=== PATIENT | male | born 1960 | race Caucasian/White ===

== ENCOUNTER 2016-08-27 09:45 | Day surgery (SDC) | payer OTHER ==
[2016-08-27] MEDS ORDERED: diphenhydrAMINE 25 MG CAP PO ONE ×2 (09:47→10:18)
[2016-08-27] MEDS ORDERED: FAMOTIDINE 20 MG TAB PO ONE (09:47)
[2016-08-27] MEDS ORDERED: NS 1,000 ML IV ONE (09:47)
[2016-08-27] MEDS ORDERED: DIAZEPAM 5 MG TAB PO ONE (09:47)
[2016-08-27] MEDS ORDERED: ASPIRIN EC 325 MG TAB PO ONE ×2 (09:47→10:18)
[2016-08-27] MEDS ORDERED: MIDAZOLAM 2 MG/2 ML VIAL ONE (09:53)
[2016-08-27] MEDS ORDERED: LIDOCAINE 1% 300 MG/30 ML SDV ONE (09:53)
[2016-08-27] MEDS ORDERED: fentaNYL 100 MCG/2 ML INJ ONE (09:53)
[2016-08-27] MEDS ORDERED: IOPAMIDOL (ISOVUE-370) 150 ML BTL IV ONE (09:53)
--- NOTE | 2016-08-27 10:07 | CPEKG ---
Heart Rate: 51 RR Interval: 1176 P-R Interval: 172 QRSD Interval: 130 QT Interval: 452 QTC Interval: 417 P [place]: 64 QRS [place]: 71 T Wave [place]: -19 EKG Severity - ABNORMAL ECG - EKG Impression: SINUS ARRHYTHMIA, RATE 42-60 EKG Impression: RIGHT BUNDLE BRANCH BLOCK Electronically Signed By: Ck Cleveland 27-Aug-2016 23:18:18
[2016-08-27] MEDS ORDERED: FAMOTIDINE 20 MG TAB ONE (10:18)
[2016-08-27] MEDS ORDERED: DIAZEPAM 5 MG TAB ONE (10:19)
[2016-08-27 10:23] LABS: % IMMATURE GRANULYOCYTES 0.3 % (0.0-1.1); ABSOLUTE IMMATURE GRANULOCYTES 0.01 10^3/uL (0.00-0.10); ADD DIFF? NO; ADD MORPH? NO; ADD SCAN? NO; ATYPICAL LYMPHOCYTE FLAG 0 (0-99); FRAGMENT RBC FLAG 0 (0-99); HEMOGLOBIN 13.7 g/dL (13.7-17.5); LEFT SHIFT FLG 0 (0-99); LIPEMIA HEMOLYSIS FLAG 90 (0-99); MEAN CELL HEMOGLOBIN 35.4 pg (27.9-34.1); MEAN CELL HEMOGLOBIN CONCENTR. 36.1 g/dL (32.4-36.7); MEAN CELL VOLUME 98.2 fL (81.5-99.8); MEAN PLATELET VOLUME 10.3 fL (8.7-11.7); PLATELET CLUMPS FLAG 0 (0-99); PLATELET COUNT 173 10^3/uL (150-400); RED BLOOD CELL COUNT 3.87 10^6/uL (4.40-6.38); RED CELL DISTRIBUTION WIDTH 12.3 % (11.5-15.2)
[2016-08-27 10:38] LABS: ANION GAP 11 mEq/L (8-16); CALCIUM 9.1 mg/dL (8.5-10.4); CARBON DIOXIDE 22 mEq/l (22-31); CHLORIDE 112 mEq/L (97-110); CHOLESTEROL 124 mg/dL (140-220); CHOLESTEROL/HDL RATIO 2.58 RATIO (1.00-4.97); CREATININE 1.1 mg/dL (0.7-1.3); GLOMERULAR FILTRATION RATE > 60; GLUCOSE 78 mg/dL (70-100); HIGH DENSITY LIPOPROTEIN 48 mg/dL (40-65); LOW DENSITY LIPOPROTEIN 67 mg/dL (80-100); MAGNESIUM 2.2 mg/dL (1.6-2.3); NON-HIGH DENSITY LIPOPROTEIN 76 mg/dL (90-129); POTASSIUM 4.2 mEq/L (3.5-5.2); SODIUM 145 mEq/L (134-144); TRIGLYCERIDE 46 mg/dL (40-150); VERY LOW DENSITY LIPOPROTEINS 9 mg/dL (8-25)
[2016-08-27 10:48] LABS: INR 1.14 (0.83-1.16)
[2016-08-27 10:49] LABS: PROTIME(PATIENT) 14.5 SEC (12.0-15.0)
[2016-08-27] MEDS ORDERED: ATROPINE SULFATE 1 MG/10 ML SYR ONE (11:06)
[2016-08-27] MEDS ORDERED: OXYCODONE/APAP 5/325 TAB PO PRN (12:04)
[2016-08-27] MEDS ORDERED: ATROPINE SULFATE 1 MG/10 ML SYR IVP PRN (12:04)
[2016-08-27] MEDS ORDERED: ONDANSETRON 4 MG/2 ML VIAL IVP PRN (12:04)
[2016-08-27] MEDS ORDERED: HYDROCODONE/APAP 5/325 TAB PO PRN (12:04)
[2016-08-27] MEDS ORDERED: NITROGLYCERIN 0.4 MG BTL SL PRN (12:04)
--- NOTE | 2016-08-27 12:10 | CPIP ---
[f rep st] INVASIVE CARDIAC PROCEDURE DATE OF PROCEDURE: 08/27/2016 INDICATION FOR PROCEDURE: Patient is a pleasant 55-year-old gentleman with complaints of chest pain with abnormal EKG changes on exercise treadmill stress test with 2.[address]-segment depression that persisted at 4 minutes into the recovery phase coupled with onset of paroxysmal atrial fibrillation with exercise. Holter monitor demonstrated runs of nonsustained ventricular tachycardia, longest run of 13 beats. Patient had an episode of non prodromal syncope while exercising. PROCEDURES PERFORMED: 1. Left heart catheterization. 2. Left and right coronary angiography. 3. Left ventriculogram. 4. Right common femoral artery angiography. 5. Angio-Seal closure device. PROCEDURE: After informed consent was obtained, the patient was brought to the cardiac catheterizat ion lab where he was prepped and draped in sterile fashion. Using 1% lidocaine, the right groin was anesthetized. Using the modified Seldinger technique, a 6-Pakistani catheter was placed into the right common femoral artery without complications. A JL4 catheter was used to take images of the left marjorie nary anatomy in multiple projections. JL4 catheter was exchanged over a guidewire for a JR4 catheter . JR4 catheter was used to take images of the right coronary anatomy in multiple projections. JR4 ca theter was exchanged over a guidewire for angled pigtail catheter. Angled pigtail catheter was used to cross the aortic valve. Left ventriculogram was performed. LVEDP was assessed and aortic valve gr adient was assessed. Angled pigtail catheter was removed over a guidewire without complication. Righ t common femoral angiography was obtained demonstrating appropriate placement of the 6-Pakistani femora l sheath above the bifurcation. FINDINGS: 1. Left main is normal size and caliber and trifurcates into a left anterior descending, ramus bran ch, and circumflex vessel. Left main is free of coronary artery disease, normal caliber and normal s ize. 2. Left anterior descending has a moderate-sized first diagonal branch. Multiple septal perforators . The LAD wraps around the LV apex. There is no evidence of coronary disease within the LAD or diago nal branch. 3. Ramus branch. Ramus branch is free of coronary artery disease throughout its entire length. 4. Circumflex vessel is a nondominant vessel. There is no evidence of coronary disease within the c ircumflex. 5. Right coronary artery is a large vessel that bifurcates into PDA and PLV branch. There is no gemma dence of coronary disease within the right coronary artery. HEMODYNAMICS: LVEDP 12 mmHg. LVEF 55-60 mmHg. Aortic valve gradient none. Right common femoral artery angiography demonstrates appropriate placement of 6-Pakistani sheath above the bifurcation. No evidence of trauma to the vessel. CONCLUSIONS: 1. Normal coronary arteries. 2. Normal left ventricular function. 3. Left ventricular end-diastolic pressure 12 mmHg. PLAN: 1. Patient will be brought back to the [facility] for postoperative monitoring. 2. Patient be discharged home. 3. Patient will follow up in our office for consideration of further evaluation of syncope coupled with nonsustained ventricular tachycardia noted on Holter monitor. /[id number]/MODL
== END 2016-08-27 16:12 | disposition home or self-care (01) ==
LOC: FCATH 09:45
PROVIDERS: ATTEND Internal Medicine Cardiovascular Disease
PROC: B2151ZZ Fluoroscopy of Left Heart using Low Osmolar Contrast (ICD-10-PCS; principal; 2016-08-27)
PROC: 4A023N7 Measurement of Cardiac Sampling and Pressure, Left Heart, Percutaneous Approach (ICD-10-PCS; principal; 2016-08-27)
PROC: B2111ZZ Fluoroscopy of Multiple Coronary Arteries using Low Osmolar Contrast (ICD-10-PCS; principal; 2016-08-27)
DX: R94.39 Abnormal result of other cardiovascular function study (principal); R07.9 Chest pain, unspecified; R55 Syncope and collapse; I47.2 Ventricular tachycardia; R68.89 Other general symptoms and signs; I48.0 Paroxysmal atrial fibrillation; I45.10 Unspecified right bundle-branch block; E83.110 Hereditary hemochromatosis
CPT/HCPCS: C1760; J0461; J1644; J2250; J3010; Q9967

== ENCOUNTER 2017-03-01 12:07 | Emergency (ER) | payer OTHER ==
[2017-03-01 12:20] VITALS: TEMP 98.4
--- NOTE | 2017-03-01 12:40 | EDPHY ---
H & P Stated Complaint: L flank pain Time Seen by Provider: 03/01/17 12:40 - Personal History Current Tetanus/Diphtheria Vaccine: Unsure Current Tetanus Diphtheria and Acellular Pertussis (TDAP): Unsure - Medical/Surgical History Hx Asthma: No Hx Chronic Respiratory Disease: No Hx Diabetes: No Hx Cardiac Disease: No Hx Renal Disease: No Hx Cirrhosis: No Hx Alcoholism: No Hx HIV/AIDS: No Hx Splenectomy or Spleen Trauma: No Other PMH: kidney stone, R inguinal hernia repair, arrhythmia - Social History Smoking Status: Never smoked Constitutional: Initial Vital Signs Temperature (C) 36.9 C 03/01/17 12:16 Heart Rate 60 03/01/17 12:16 Respiratory Rate 16 03/01/17 12:16 Blood Pressure 121/74 H 03/01/17 12:16 O2 Sat (%) 95 03/01/17 12:16 O2 Delivery Mode Room Air Allergies/Adverse Reactions: No Known Allergies Allergy (Unverified 03/01/17 12:15) Home Medications: Medication Instructions Recorded Aspirin 03/01/17 Percocet 5/325 (*) 03/01/17 Medical Decision Making - Diagnostics Imaging Results: Imaging Impressions Abdomen/Pelvis CT 03/01/17 12:58 Impression: 1. Subtle evidence for new left perinephric edema. Might this patient have pyelonephritis? There is certainly no renal obstruction or ureteral stone. There is no progression of nonobstructive nephrolithiasis. 2. Possible cecal mass, not obstructing the adjacent normal appendix. Consider CT with IV contrast. 3. Constipation. 4. Mild diverticulosis without evidence of diverticulitis. 5. Contracted gallbladder. If there is concern for cholelithiasis or cholecystitis, consider ultrasound. Attention: This CT examination is specifically designed to evaluate patients who are clinically suspected of having acute obstructive uropathy. This examination does not use radiographic contrast, and as such, provides only a limited evaluation of the abdomen, pelvis and retroperitoneum. If there is further clinical suspicion for pathological conditions other than obstructive uropathy, a complete CT evaluation of the abdomen and pelvis utilizing intravenous, oral, and rectal contrast should be considered. General information for patients regarding this examination can be found at [email or web address]. If you have questions or comments about this report, please contact me at (hospital) or [phone] (cell). Imaging: I viewed and interpreted images myself ED Course/Re-evaluation: CHIEF COMPLAINT: Left-sided flank pain HISTORY OF PRESENT ILLNESS: The patient is a 56 y/o male with a history of kidney stones complaining of left -sided flank pain since night, 3 days ago. The pain has remained constant and occasionally radiates to his testicle. At 11:00, 2 hours ago, he took a Percocet at home and is not in any pain. His symptoms are similar to prior kidney stones. Denies chest pain, shortness of breath, bowel complaints, fevers, paresthesias, numbness or other pertinent symptoms. REVIEW OF SYSTEMS: A 10 point review of systems was performed and is negative with the exception of the elements mentioned in the history of present illness. PHYSICAL EXAM: HR, BP, O2 Sat, RR. Temp noted General Appearance: Alert, well hydrated, appropriate, and non-toxic appearing. Head: Atraumatic without scalp tenderness or obvious injury Eyes: Pupils equal, round, reactive to light and accommodation, EOMI, no trauma , no injection. Ears: Clear bilaterally, no perforation, normal landmarks Nose: Atraumatic, no rhinorrhea, clear. Throat: Mucus membranes moist. Neck: Supple, nontender, no lymphadenopathy. Respiratory: No retractions, no distress, no wheezes, and no accessory muscle use. Lungs are clear to auscultation bilaterally. Cardiovascular: Regular rate and rhythm, no murmurs, rubs, or gallops. Good capillary refill all extremities. Gastrointestinal: Abdomen is soft, nontender, non-distended, no masses, no rebound, no guarding, no peritoneal signs. Musculoskeletal: Normal active ROM of all extremities, atraumatic. Neurological: Alert, appropriate, and interactive. Nonfocal neuro. Skin: No rashes, good turgor, no nodules on palpation. Past medical history: Kidney stone (1999, 2016), arrhythmia Past surgical history: Right inguinal hernia repair, Family history: Noncontributory Social history: at bedside, lives in [place], works for [employer] DIAGNOSTICS/PROCEDURES/CRITICAL CARE TIME: Abdominopelvic CT: No sign of kidney stone. There is an abnormal finding of a possible cecal mass. DIFFERENTIAL DIAGNOSIS: The differential diagnosis for the patient's flank pain included but was not limited to musculoskeletal causes, kidney stone, pyelonephritis, shingles, diverticulitis, appendicitis, and aortic aneurysm. MEDICAL DECISION MAKING: The patient is a 56 y/o male with a history of kidney stones presenting with left-sided flank pain that intermittently radiates to his groin. His physical exam is normal. Is not in any pain after taking a Percocet at home [address] ordered. 0.4mg PO Flomax administered. 1255: Patient's UA is negative. 1426: Reviewed patient's abdominopelvic CT; he has passed the kidney stone. There is an incidental finding of a possible cecal mass that will require the patient to follow up with Dr. Silva, general surgeon, within the week. 1427: Reassessed patient and discussed imaging and laboratory findings. Return precautions provided; patient is comfortable with this plan. - Data Points Laboratory Results: 03/01/17 12:25 Urine Color PALE YELLOW Urine Appearance HAZY Urine pH 6.0 (5.0-7.5) Ur Specific [place] 1.002 (1.002-1.030) Urine Protein NEGATIVE (NEGATIVE) Urine Ketones NEGATIVE (NEGATIVE) Urine Blood NEGATIVE (NEGATIVE) Urine Nitrate NEGATIVE (NEGATIVE) Urine Bilirubin NEGATIVE (NEGATIVE) Urine Urobilinogen NEGATIVE EU EU (0.2-1.0) Ur Leukocyte Esterase NEGATIVE (NEGATIVE) Urine Glucose NEGATIVE (NEGATIVE) Medications Given: Discontinued Medications Tamsulosin HCl (Flomax) 0.4 mg PO EDNOW ONE Stop: 03/01/17 12:52 Last Admin: 03/01/17 13:00 Dose: 0.4 mg Departure - Departure Disposition: Home, Routine, Self-Care Clinical Impression: Kidney stone, Cecum mass Condition: Good Instructions: Kidney Stones (ED), Acute Abdominal Pain (ED) Additional Instructions: 1. Followup with your Dr. Silva, general surgeon, regarding an abnormal finding of a possible cecal mass near you appendix within the week. 2. You have passed your kidney stone. 3. Return to the emergency apartment for fever, severe pain, bowel complaints, inability to urinate or other concerns. Referrals: Wojciech Fountain MD [Primary Care Provider] - As per Instructions Jorge Silva MD [Medical Doctor] - As per Instructions Report Scribed for: Lauro Higgins Report Scribed by: Heike Hart Date of Report: 03/01/17 Time of Report: 12:49
[2017-03-01] MEDS ORDERED: TAMSULOSIN HCL 0.4 MG CAP PO ONE (12:51)
[2017-03-01 14:38] VITALS: BP 105/55; PULSE 58; RESP 14; O2SAT 93
== END 2017-03-01 14:37 | disposition home or self-care (01) ==
DX: N20.0 Calculus of kidney (principal); K63.89 Other specified diseases of intestine

== ENCOUNTER 2017-03-02 12:50 | Emergency (ER) | payer OTHER ==
--- NOTE | 2017-03-02 14:38 | EDPHY ---
H & P Smoking Status: Never smoked Time Seen by Provider: 03/02/17 14:28 HPI/ROS: Chief complaint. Back pain HPI. 56-year-old male presents emergency department 4 day history of left flank and lower back pain. 2 days ago he had some anterior pain that radiated to the left groin. He has no fever, vomiting, diarrhea, urinary symptoms. There is no radiation down the leg. The patient feels that the discomfort is equally same at rest or with walking. It does not appear to be worse with range of motion. Similar symptoms previously with kidney stone. The patient was seen yesterday in the emergency department and a noncontrast CT showed no evidence for kidney stone dose some inflammation of the left kidney that would suggest pyelonephritis. There was also possible visualization of the cecal mass. In took a Percocet at about 30 a.m. this morning and he does not have any pain now ROS Constitutional. no fever/chills, no weakness Eyes. no problems with vision ENT. no sore throat, no nasal drainage Cardiovascular. no chest pain Respiratory. no shortness of breath, no cough Abdominal. Left flank pain . no problems urinating MS. no calf pain/swelling, no neck/back pain, no joint pain Skin. no rash Lymph. no swollen glands Neuro. no headache, no dizziness, no difficulty walking or with speech (Errol Mcgee) Past Medical/Surgical History: Past medical history significant for kidney stone, inguinal hernia, arrhythmia ( Errol Mcgee) Social History: , nonsmoker, no alcohol (Errol Mcgee) Physical Exam: General Appearance: Alert well-developed male mild distress vital signs are stable Eyes: Pupils equal and round no pallor or injection. ENT, Mouth: Mucous membranes are moist. Respiratory: There are no retractions, lungs are clear to auscultation. Cardiovascular: Regular rate and rhythm. Gastrointestinal: Abdomen is soft and nontender, no masses, bowel sounds normal. Patient shows me tenderness to the left flank but it is not worse with palpation Neurological: Awake and alert, sensory and motor exams grossly normal. Skin: Warm and dry, no rashes. Musculoskeletal: Neck is supple nontender. Extremities symmetrical, full range of motion. Psychiatric: Patient is oriented X 3, there is no agitation. (Errol Mcgee) Constitutional: Initial Vital Signs Temperature (C) 36.9 C 03/02/17 12:52 Heart Rate 76 03/02/17 12:52 Respiratory Rate 18 03/02/17 12:52 Blood Pressure 132/64 H 03/02/17 12:52 O2 Sat (%) 97 03/02/17 12:52 O2 Delivery Mode Room Air Allergies/Adverse Reactions: No Known Allergies Allergy (Verified 03/02/17 12:51) Home Medications: Medication Instructions Recorded NK [No Known Home Meds] 03/02/17 Medical Decision Making Procedures: Normal saline. (Errol Mcgee) Other Provider: I assumed care of this patient from Dr. Mcgee at change of shift. Currently we are awaiting laboratory evaluation and urinalysis with a plan to proceed with further CT studies as indicated. Patient has no white count. Normal chemistries with a creatinine of 1.0. Urinalysis is clean with no white cells, no red cells, normal DIP with the exception of 4+ urobilinogen. On my examination the patient reports that the pain has been well controlled since he took Percocet before coming to the emergency department. However it is starting to recur with a discomfort in the left flank. He feels the discomfort also into his testicle, with a squeezing sensation. He has no tenderness to palpation in the flank. His abdomen is soft and nontender. CT scan with IV contrast was obtained. Dr. Lam called me with the report. Patient has a 5 mm stone in the renal pelvis of the left kidney. The left kidney is and renal pelvises inflamed with some dilatation of the proximal ureter. No stone in the distal ureter. No distal ureteral dilatation. CT scan with delayed contrast will be obtained Patient received a dose of Toradol as he is developing more discomfort. Delayed images continue to demonstrate inflammatory changes of the left kidney. The mass in the colon seen on previous CT studies is not well visualized without the use of oral or rectal contrast. Patient's course was then discussed with Dr. Ferris from Urology. He will evaluate the patient in the morning in his office. I discussed the situation with the patient and his . Dr. Koehler suggested that intermittent obstruction may be the cause of the patient's discomfort. We will not start the patient on antibiotics the urine will be sent for culture. Patient should continue to take Percocet as needed. He was discharged in improved condition with instructions regarding follow-up with Dr. Ferris from Urology, as well as follow up with his family resource management specialist for repeat colonoscopy to further evaluate the colon abnormality. (Sania Gaona) Care Turn Over: Care to Dr. Gaona at 3:00 p.m. (Errol Mcgee) - Data Points Laboratory Results: Laboratory Results 03/02/17 14:30 03/02/17 14:30 Medications Given: Discontinued Medications Sodium Chloride (Ns) 1,000 mls @ 0 mls/hr IV ONCE ONE; Wide Open PRN Reason: Protocol Stop: 03/02/17 15:59 Last Admin: 03/02/17 16:13 Dose: 1,000 mls Ketorolac Tromethamine (Toradol) 15 mg IVP EDNOW ONE Stop: 03/02/17 16:40 Last Admin: 03/02/17 16:43 Dose: 15 mg Departure - Departure Disposition: Home, Routine, Self-Care Clinical Impression: Flank pain Condition: Good Instructions: Flank Pain (ED) Additional Instructions: 1. Follow up with Dr. Ferris, urologist, tomorrow. Call in the morning for an appointment. 2. Continue taking Percocet as directed for pain relief. 3. Return to the emergency department for fever, worsening pain, uncontrollable vomiting or diarrhea, inability to urinate or other concerns. 4. Follow up with the family resource management specialist who did your colonoscopy as well for repeat evaluation as we discussed. Referrals: Wojciech Fountain MD [Primary Care Provider] - As per Instructions Deng Ferris MD [Medical Doctor] - As per Instructions
[2017-03-02 14:52] LABS: PLATELET COUNT 197 10^3/uL (150-400)
[2017-03-02] MEDS ORDERED: IOPAMIDOL (ISOVUE-300) 100 ML BTL ONE (15:51)
[2017-03-02] MEDS ORDERED: NS 1,000 ML IV ONE (15:58)
[2017-03-02 16:17] VITALS: RESP 16; O2SAT 96
[2017-03-02] MEDS ORDERED: KETOROLAC 15 MG/1 ML SDV IVP ONE (16:39)
[2017-03-02 18:37] VITALS: BP 122/80; PULSE 56; TEMP 98.8
== END 2017-03-02 18:37 | disposition home or self-care (01) ==
DX: R10.9 Unspecified abdominal pain (principal); E86.9 Volume depletion, unspecified
CPT/HCPCS: 96374; J1885; Q9967

== ENCOUNTER → 2017-04-08 | Outpatient (CLI) | payer OTHER | LOC: BMCIMAGING 12:22 | PROVIDERS: ATTEND Emergency Medicine | DX: N50.89 Other specified disorders of the male genital organs (principal) ==

== ENCOUNTER → 2017-04-10 | Outpatient (CLI) | payer OTHER | LOC: BMCIMAGING 13:20 | PROVIDERS: ATTEND Specialist | DX: I87.8 Other specified disorders of veins (principal) ==

== ENCOUNTER 2017-05-28 09:40 | Day surgery (SDC) | payer OTHER ==
[~2017-05-28 09:40] MED LIST: cefOXitin SODIUM 2 GM in STERILE WATER INJ 21 ML IV ONE
[2017-05-28] MEDS ORDERED: LR 1,000 ML IV ONE (09:57)
[2017-05-28] MEDS ORDERED: MIDAZOLAM 2 MG/2 ML VIAL IVP ONE (11:01)
--- NOTE | 2017-05-28 11:02 | PDANEPAE ---
ANE History of Present Illness cecal mass ANE Past Medical History - Cardiovascular History Hx Hypertension: No Hx Arrhythmias: Yes Hx Chest Pain: No Hx Coronary Artery / Peripheral Vascular Disease: No Hx CHF / Valvular Disease: No Hx Palpitations: No Cardiovascular History Comment: Non sustained VT. Implanted loop monitor - Pulmonary History Hx COPD: No Hx Asthma/Reactive Airway Disease: No Hx Recent Upper Respiratory Infection: No Hx Oxygen in Use at Home: No Hx Sleep Apnea: No Sleep Apnea Screening Result - Last Documented: Negative - Neurologic History Hx Cerebrovascular Accident: No Hx Seizures: No Hx Dementia: No - Endocrine History Hx Diabetes: No - Renal History Hx Renal Disorders: No - Liver History Hx Hepatic Disorders: No - Neurological & Psychiatric Hx Hx Neurological and Psychiatric Disorders: No - Cancer History Hx Cancer: No - Congenital Disorder History Hx Congenital Disorders: No - GI History Hx Gastrointestinal Disorders: No Gastrointestinal History Comment: NONE - Other Health History Other Health History: keratosis. medication used on keratosis caused increased redness behind knee - Chronic Pain History Chronic Pain: No - Surgical History Prior Surgeries: CARDIAC CATH. TOOTH EXTRACTION. COLONOSCOPY ANE Review of Systems Review of systems is: negative Review of Systems: - Exercise capacity METS (RN): 5 METS ANE Patient History - Allergies Allergies/Adverse Reactions: No Known Allergies Allergy (Verified 05/19/17 15:21) - Home Medications Home medications: home medication list seen and reviewed Home Medications: Fluorouracil 05/27/17 [Last Taken Unknown] - NPO status NPO Since - Liquids (Date): 05/27/17 NPO Since - Liquids (Time): 22:00 NPO Since - Solids (Date): 05/27/17 NPO Since - Solids (Time): 10:00 - Anes Hx Anes Hx: no prior problems - Smoking Hx Smoking Status: Never smoked - Family Anes Hx Family Hx Anesthesia Complications: NONE ANE Labs/Vital Signs - Vital Signs Blood Pressure: 130/78 Heart Rate: 53 Respiratory Rate: 16 O2 Sat (%): 99 Height: 177.8 cm Weight: 72.575 kg ANE Physical Exam - Airway Neck exam: FROM Mallampati Score: Class 1 Mouth exam: normal dental/mouth exam - Pulmonary Pulmonary: no respiratory distress - Cardiovascular Cardiovascular: regular rate and rhythym - ASA Status ASA Status: II ANE Anesthesia Plan Anesthesia Plan: general endotracheal anesthesia
[2017-05-28] MEDS ORDERED: PROPOFOL 200 MG/20 ML VIAL ONE (11:32)
[2017-05-28] MEDS ORDERED: fentaNYL 100 MCG/2 ML INJ ONE ×2 (11:32)
[2017-05-28] MEDS ORDERED: HYDROmorphONE/DILAUDID 2 MG/ML INJ ONE (11:32)
[2017-05-28] MEDS ORDERED: LIDOCAINE 2% 5 ML SDV ONE (11:34)
[2017-05-28] MEDS ORDERED: ROCURONIUM 100 MG/10 ML VIAL ONE (11:37)
[2017-05-28] MEDS ORDERED: ONDANSETRON 4 MG/2 ML VIAL ONE (11:38)
[2017-05-28] MEDS ORDERED: SUGAMMADEX SODIUM 200 MG/2 ML VIAL IVP ONE (11:38)
[2017-05-28] MEDS ORDERED: DEXAMETHASONE 4 MG/ML VIAL ONE (11:38)
[2017-05-28] MEDS ORDERED: BUPIVACAINE 0.5% 30 ML SDV ONE ×2 (11:38→14:15)
[2017-05-28] MEDS ORDERED: KETOROLAC 30 MG/1 ML SDV ONE (11:38)
[2017-05-28] MEDS ORDERED: PHENYLEPHRINE HCL 100 MCG/ML SYR ONE (11:42)
--- NOTE | 2017-05-28 12:06 | PDGENHP ---
History & Physical Chief Complaint: Cecal mass History of Present Illness: H/o cecal mass on colonoscopy. No bleeding/pain. Pertinent Past, Social, Family History: PMHx: H/o VT, resolved. PSHx: negative. NKDA Relevant Physical Exam: Alert, NAD. Abd soft, NTTP Cardiorespiratory Assessment: RRR. CTA B. Risks/benefits reviewed with patient and family, questions answered. Plan lap cecectomy vs. right colectomy.
[2017-05-28] MEDS ORDERED: epHEDrine SULFATE 10 MG/ML SYR ONE (12:26)
--- NOTE | 2017-05-28 13:15 | POSTANESTH ---
Post Anesthetic Evaluation Cardiovascular Status: Normal, Stable Respiratory Status: Normal, Stable Level of Consciousness/Mental Status: Can Participate in Eval Pain Control: Adequate, Prn Tx Ordered Nausea/Vomiting Control: Adequate, Prn Tx Ordered Complications Possibly Related to Anesthesia: None Noted
[2017-05-28] MEDS ORDERED: METOCLOPRAMIDE 10 MG/2 ML VIAL IVP PRN (14:19)
[2017-05-28] MEDS ORDERED: PROMETHAZINE HCL 25 MG/ML INJ IVP PRN (14:19)
[2017-05-28] MEDS ORDERED: fentaNYL 100 MCG/2 ML INJ IVP PRN (14:19)
[2017-05-28] MEDS ORDERED: ACETAMINOPHEN 500 MG TAB PO PRN (14:19)
[2017-05-28] MEDS ORDERED: LR 500 ML IV PRN (14:19)
[2017-05-28] MEDS ORDERED: ALBUTEROL 3 ML DEYVIAL IH PRN (14:19)
[2017-05-28] MEDS ORDERED: HYDROCODONE/APAP 5/325 TAB PO PRN (14:19)
[2017-05-28] MEDS ORDERED: NALOXONE HCL 0.4 MG/ML INJ IVP PRN (14:19)
[2017-05-28] MEDS ORDERED: ONDANSETRON 4 MG/2 ML VIAL IVP PRN (14:19)
[2017-05-28] MEDS ORDERED: oxyCODONE IR 5 MG TAB PO PRN (14:19)
[2017-05-28] MEDS ORDERED: HYDROmorphONE/DILAUDID 2 MG/ML INJ IVP PRN (14:19)
--- NOTE | 2017-05-28 14:49 | POSTOPPROG ---
Post Op Note Date of Operation: 05/28/17 Surgeon: Silvino Quiñones Cotton Presser: Yancy Yancey Anesthesiologist: Dr. Nielsen Anesthesia: GET(General Endotracheal) Pre-op Diagnosis: Cecal mass Post-op Diagnosis: same Procedure: Lap cecectomy, colotomy Findings: mass Inf/Abcess present in the surg proc area at time of surgery?: No EBL: Minimal
[2017-05-28 18:08] VITALS: BP 157/84
--- NOTE | 2017-05-28 19:53 | GOP ---
[f rep st] OPERATIVE REPORT DATE OF OPERATION: SURGEON: Francisco Quiñones MD HAIR SPINNING MACHINE OPERATOR: GRAZYNA Flores, whose presence was requested by me, medically necessary for the saf e and timely completion of this case. ANESTHESIA: General endotracheal anesthesia. ANESTHESIOLOGIST: Dr. Nielsen. PREOPERATIVE DIAGNOSIS: Cecal mass. POSTOPERATIVE DIAGNOSIS: Cecal mass. PROCEDURE PERFORMED: 1. Laparoscopic sigmoidectomy. 2. Laparoscopic-assisted colostomy and biopsy. FINDINGS: The patient had an extensive fecalith that was essentially submucosal. No other lesions w ere identified. ESTIMATED BLOOD LOSS: 20 cc. INDICATIONS: 56-year-old male with a history of a cecal mass. Risks and benefits of procedure discu ssed with the patient and his family, their questions were answered, and he wished to proceed. DESCRIPTION OF PROCEDURE: Patient in supine position. After adequate general endotracheal anesthesi a, patient prepped and draped in the standard surgical fashion. 0.5% Marcaine was injected throughou t the infraumbilical area for local and a 5 mm incision was made with a #15 blade. The abdominal wal l was elevated and a Veress needle was inserted. After noting proper pressures, the abdomen was insu fflated with carbon dioxide. A 5 mm trocar was passed. Camera followed. There was no apparent kevin ge from trocar placement. Two more ports were placed, one 5 mm port in the suprapubic midline, one 1 2 mm port in the left lower quadrant. These were both placed under direct vision after injecting 0.5 % Marcaine for local anesthesia. The abdomen was inspected. No lesions were noted in the peritoneum, omentum, liver, or external cesar l. The cecum was identified and the remainder of the colon appeared normal. However, at the base of the appendix, appeared to be markedly dilated. The colon was partially mobilized using blunt dissec tion and cautery. A window was then created just adjacent to the ileocecal valve. Care was taken no t to disturb the valve itself. Once this window was cleared, 2 firings of the Endo-LESLIE stapler were used to transect the cecum and appendix. This was placed in EndoCatch bag, withdrawn through the 12 mm port. This was sent to Pathology for fresh. They determined there was no mass lesion, however, t here was a large fecalith in this area that might account for the distortion seen on both endoscopy a nd CT scan. Decision was made to assess the colon for further masses. The colon was completely mobilized to the hepatic flexure using blunt dissection and cautery. Once this was completed, a mini laparotomy incis ion was made in the infraumbilical area. This was done after injecting 0.5% Marcaine for local anest hesia and using a 15 blade. The subcutaneous tissue was divided with cautery in the midline and the fascia was divided similarly. The abdomen was entered and an Wei wound protector was placed. The colon was easily brought to the midline and palpated extensively. No tattooing could be identified. One small area of thickening was identified. Part of the staple line in the lateral aspect of the colon was transected sharply. The colon was then entered and inspected and palpated extensively. No further lesions could be identified. Therefore, this colotomy was carefully closed using 3-0 Vicryl in a running fashion. This was reinforced with 3-0 Vicryl Lembert sutures. This was then further r einforced using epiploic appendages that were sutured to cover the defect using 3-0 Vicryl in interru pted fashion. The colon was then returned to the abdomen. Good hemostasis noted. The area was thoroughly irrigated and aspirated. The fascia at the mini lapa rotomy site was closed with 0 PDS in a running fashion. Fascia of the 12 mm port site was closed usi ng 0 Vicryl in an interrupted fashion. The skin was closed with 4-0 Monocryl in a subcuticular stitc h. Wounds were sterilely dressed, the patient was extubated and taken to PACU in stable condition. COMPLICATIONS: None. DRAINS: None. /[id number]/MODL
== END 2017-05-28 17:10 | disposition home or self-care (01) ==
LOC: FSGY 09:40
PROVIDERS: ATTEND Surgery
PROC: 0DJD0ZZ Inspection of Lower Intestinal Tract, Open Approach (ICD-10-PCS; principal; 2017-05-28 11:00)
PROC: 0DBH0ZX Excision of Cecum, Open Approach, Diagnostic (ICD-10-PCS; principal; 2017-05-28 11:00)
PROC: 0DTJ0ZZ Resection of Appendix, Open Approach (ICD-10-PCS; principal; 2017-05-28 11:00)
DX: K38.1 Appendicular concretions (principal); Z53.31 Laparoscopic surgical procedure converted to open procedure
CPT/HCPCS: J0694; J1100; J1170; J1885; J2250; J2370; J2405; J2704; J3010